=== PATIENT | male | born 2005 | race Caucasian/White ===

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

== ENCOUNTER 2025-02-22 09:11 | Emergency (ER) | payer MEDICAID, SELFPAY ==
[2025-02-22] VITALS (10 sets, daily range): BP systolic 137–146; BP diastolic 107–126; PULSE 100–229; RESP 0–34; TEMP 37.7; O2SAT 93–100; BMI 29.6
--- OUTSIDE RECORDS SUMMARY | 2025-02-22 09:13 | XMS_ITS | Clinical Summary ---
Author Organization [facility] Address [address] [place] [address] Care Team Providers Care Manager Medical Name Role Phone Chari Reed MD Primary Care Provider Allergies No known active allergies Medications buPROPion (WELLBUTRIN XL) 300 mg Extended-Release tabletIndication s:Anxiety and depression Take 1 Tablet (300 mg) by mouth once daily. 90 Tablet 1 05/16/2024 Active omeprazole 20 mg tabletIndication s:Abdominal pain, generalized,Bloa ting Take 1 Tablet (20 mg) by mouth once daily before a meal. 30 Tablet 3 09/04/2024 Active Active Problems Problem Noted Date Diagnosed Date High triglycerides 04/08/2023 ADHD 07/22/2019 Overview (09/29/2022): Assessment at [facility] in 2019 (see scanned report). trials:Concerta Anxiety and depression 07/22/2019 Overview (09/29/2022): Past trials: Celexa. Saw Psychiatrist in the past. Assessment at [facility] in 2019 (see scanned report). Autism spectrum disorder 07/22/2019 Overview (09/29/2022): Assessment at [facility] in 2019 (see scanned report). Resolved Problems Problem Noted Date Diagnosed Date Resolved Date ADHD 07/22/2019 09/29/2022 Overview (09/29/2022): Assessment at [facility] in 2019 (see scanned report). Autism spectrum disorder 07/22/201907/2022 Overview (09/29/2022): Assessment at [facility] in 2020 (see scanned report). ADHD 07/22/2019 09/29/2022 Overview (09/29/2022): Assessment at [facility] in 2020 (see scanned report). trials:Concerta ADHD 09/29/2022 Overview (02/01/2020): Saw Psychiatrist (does not remember name), was on Adderall Depression 09/29/2022 Overview (02/01/2020): Saw Psychiatrist (does not remember name) Immunizations Immunization Administration Dates Next Due COVID-19 VACCINE SPIKEVAX (M ODERNA 50MCG/0.5ML) 12YO+ PFS 04/07/2023 COVID-19 vaccine (My-Apps NTech 30mcg/0.3mL) PF, MDV 01/18/2021,12/28/2020 DTP 11/04/2008 DTaP 04/09/2007 EAzF-KuzR-PKC (Pediarix) 10/27/2006,09/03/2004,1 07/09/2002 DTaP-IPV (Kinrix) 11/04/2008 HIB PRP-D (ProHIBIT) 10/27/2006 HIB PRP-T (ActHIB,Hiberix) 10/27/2006,09/03/2004 ,2003 HPV 9 (Gardasil 9) 04/07/2023,02/01/2020 Hepatitis A (Peds) 04/30/2015,2004 Inactivated Polio Vaccine 11/04/2008,09/2007,10/27/2006,09/03,2003 Influenza, IIV4 04/07/2023 MENINGOCOCCAL VACCINE 2 VIAL 2MO-55YO (MENVEO) 02/01/2020,04/30/2015 MMR 11/04/2008,2008,09/03/2004 Pneumococcal conj 7-Valent (Prevnar 7) 7,09/03/2004,2003 Tdap 04/30/2015 Varicella Vaccine 11/04/2008,2008,10/28/19 07 Family History Medical History Relation Name Comments Good Health Father Heart Disease Maternal Grandfather ADD / ADHD Mother Relation Name Status Comments Father Maternal Grandfather Mother Social History Tobacco Use Types Packs/Day Years Used Date Smoking Tobacco: Some Days Cigarettes Smokeless Tobacco: Never Tobacco Cessation:Ready to Q uit: No; Counseling Given: Yes Alcohol Use Standard Drinks/Week Comments Not Currently 0 (1 standard drink = 0.6 oz pur e alcohol) occ PHQ-2 Answer Date Recorded PHQ-2 TOTAL SCORE 2 11/02/2023 Social Connections Answer Date Recorded Do you often feel lonely or isolated from those around you? 0 09/04/2024 Financial Resource Strain Answer Date R ecorded Difficulty of Paying Living Expenses 1 09/04/2024 Difficulty of Paying Living Expenses 2 09/04/2024 Food Insecurity Answer Date Recorded Do you worry your food will run out before you are able to buy more? 1 09/04/2024 Transportation Needs Answer Date Record ed Does lack of transportation keep you from medica l appointments? 1 09/04/2024 Does lack of transportation keep you from work, meetings or getting things that you need? 2 09/04/2024 Housing Stability Answer Date Recorded What is your housing situation today? 1 09/04/2024 Utilities Answer Date Recorded Do you have trouble paying f or utilities (for example, heat, electricity, water, phone)? 1 09/04/2024 Sex and Gender Information Value Date Recorded Sex Assigned at Male 11/02/2023 3:35 PM CDT Legal Sex Male 7:18 PM CDT Gender Identity Male 11/02/2023 3:35 PM CDT Sexual Orientation Bisexual 11/02/2023 3: 35 PM CDT Obstetrics History Last Filed Vital Signs Vital Sign Reading Time Taken Comments Blood Pressure 146/92 09/04/2024 1:18 PM CDT Pulse 82 09/04/2024 1:18 PM CDT Temperature 37.2 C (99 F) 03/08/2011 3:45 PM CDT Respiratory Rate - - Oxygen Saturation 97% 09/04/2024 1:18 PM CDT Inhaled Oxygen Concentration - - Weight 118.2 kg (260 lb 9.6 oz) 09/04/2024 1:18 PM CDT Height 199 cm (6' 6.35) 04/07/2023 3:30 PM SURVEYOR'S ASSISTANT Body Mass Index - - Plan of Treatment Health Maintenance Due Date Last Done Comments Pneumococcal series for age 6-49 (1 of 2 - PCV) 2022 10/27/2006, 09/03/2004, 2003 HPV series for age 9-45 (3 - Male 3-dose series) 06/30/2023 04/07/2023, 02/01/2020 BMI (ht and wt on same day) for age 18+ 04/07/2024 04/07/2023, 11/02/2021, 09/28/2021 Depression screening for age 12+ 11/01/2024 11/02/2023, 04/08/2023, 04/07/2023, Additional history exists COVID-19 vaccine series ( season) 2025 04/07/2023, 01/18/2021, 12/28/2020 Influenza Vaccine (#1) 2025 04/07/2023 Tetanus booster 04/30/2025 04/30/2015 RSV vaccine for adults or (1 - 1-dose 75+ series) 2078 Hepatitis B series for 19+ Completed 10/27, 09/03/2004, 2003 Meningococcal series for age 11-21 Completed 2019, 04/30/2015 HIV for age 15-65 Completed 04/07/2023 Hepatitis C screening for ag e 18-79 Completed 04/07/2023 Procedures Procedure Name Priority Date/Time Associated Diagnosis Comments ANTI HIV 1/2 Routine 04/07/2023 4:40 PM SURVEYOR'S ASSISTANT Screening for HIV (human immunodeficiency virus) ANTI HCV Routine 04/07/2023 4:40 PM SURVEYOR'S ASSISTANT Need for hepatitis C screening test from Last 3 Months or Most Recently Relevant to Health Maintenance Results * ANTI HCV (04/07/2023 4:40 PM SURVEYOR'S ASSISTANT) HEPATITIS C ANTIBODY Non-Reacti ve Non-React clark 04/07/2023 9:08 PM SURVEYOR'S ASSISTANT [facility] Comment:Please note, per www .CDC.gov: If a patient is known to be at high risk of HCV infection, or is symptomatic, and the physician's suspicion of HCV infection is high, HCV RNA testing is often employed and is of diagnostic value, even after an initial negative anti-HCV test result. Blood BLOOD SPECIMEN / Unknown Venipuncture / Unknown 04/07/2023 4:40 PM SURVEYOR'S ASSISTANT 04/07/2023 4:42 PM SURVEYOR'S ASSISTANT Chari Reed MD SEND OUTS Final Result Performing Organization Address [facility] [address]/[facility] Co de Phone Number [facility] [address] [address], * ANTI HIV 1/2 [05949.0] (04/07/2023 4:40 PM SURVEYOR'S ASSISTANT) HIV-1/HIV-2 SCREEN Non-Reacti ve Non-Reacti ve 04/07/2023 9:10 PM SURVEYOR'S ASSISTANT [facility] Comment:HIV-1 p24 and HIV-1/ HIV-2 Ab Not Detected. Blood BLOOD SPECIMEN / Unknown Venipuncture / Unknown 04/07/2023 4:40 PM SURVEYOR'S ASSISTANT 04/07/2023 4:42 PM SURVEYOR'S ASSISTANT Chari Reed MD SEND OUTS Final Result Performing Organization Address City/[facility] [address]/[facility] Co de Phone Number [facility] [address] [place] [address], from Last 3 Months or Most Recently Relevant to Health Maintenance Insurance [facility] Care Teams Manager Medical Relationship Specialty Start Date End Date Chari Reed MD [address] [facility] [address] [place], [place] [id number] PCP - General Family Practice 04/07/23
--- NOTE | 2025-02-22 09:42 | ED.CHESTPAIN ---
HPI - Chest Pain General Chief Complaint: Chest Pain Stated Complaint: difficulty breathing, chest pain Time Seen by Provider: 02/22/25 09:34 History of Present Illness HPI narrative: Patient is a 19-year-old gentleman with history of autism and anxiety who presents with proximally 12 hours of anxiety palpitations and fever. He really has no other localizing symptoms. He feels like his heart is racing P does have some intermittent chest pain but no diaphoresis no abdominal pain no changes bowel or bladder. Patient has been eating and drinking normally. Patient has had no dysuria no other signs of infection. No recent injuries or trauma. Related Data Home Medications ?Medication ?Instructions ?Recorded ?Confirmed bupropion HCl 150 mg 24 hr tablet, 150 mg PO DAILY 10/25/22 02/22/25 extended release bupropion HCl 300 mg 24 hr tablet, 300 mg PO DAILY 02/22/25 02/22/25 extended release omeprazole 20 mg tablet,delayed 20 mg PO DAILY 02/22/25 02/22/25 release Allergies Allergy/AdvReac Type Severity Reaction Status Date / Time No Known Drug Allergies Allergy Verified 11/17/22 18:53 Review of Systems Status of ROS Reports: 10 or more systems reviewed and unremarkable except as noted in History and below [facility] Medical History Autism ?F84.0 - Autistic disorder (ICD-10) ADHD (attention deficit hyperactivity disorder) ?F90.9 - Attention-deficit hyperactivity disorder, unspecified type (ICD-10) Depression ?F32.A - Depression, unspecified (ICD-10) Anxiety ?F41.9 - Anxiety disorder, unspecified (ICD-10) Poor self-esteem ?R45.81 - Low self-esteem (ICD-10) Surgical History S/P ORIF (open reduction internal fixation) fracture (11/11/22) ?Z98.890 - Other specified postprocedural states (ICD-10) ?Z87.81 - Personal history of (healed) traumatic fracture (ICD-10) Social History Smoking Status: Current every day smoker Do you use any of these nicotine containing products: Vaping Products How often do you have a drink containing alcohol: never AUDIT-C Alcohol total score: 0 Non-prescribed substance use: marijuana (any form) service: No Exam Narrative Exam Narrative: EXAM GENERAL: Patient appears extremely anxious. EYES: No scleral icterus. LYMPH: No supraclavicular or cervical lymphadenopathy. SKIN: Visible skin seen during exam normal or with benign process only. EXT: No dependent lower extremity pedal edema. HEART: Mildly tachycardic with no signs of ectopy. LUNGS: Clear to auscultation bilaterally with no crackles or wheezes. ABD: Soft, non tender, non distended. PSYCH: Good eye contact, speech is not pressured. Const Vital Signs, click to edit/add: Vital Signs - 24 hr 02/22/25 09:24 02/22/25 09:30 02/22/25 09:31 Temperature 99.9 F H Pulse Rate 116 H Pulse Rate [Left Pulse Oximeter] 129 H Respiratory Rate 22 16 Blood Pressure 137/126 H Blood Pressure [Right Upper Arm] 137/126 H Pulse Oximetry 100 95 Oxygen Delivery Method Room Air 02/22/25 09:45 02/22/25 10:00 02/22/25 10:02 Temperature Pulse Rate 100 113 H 126 H Pulse Rate [Left Pulse Oximeter] Respiratory Rate 34 H 18 21 Blood Pressure 146/107 H Blood Pressure [Right Upper Arm] Pulse Oximetry 98 98 96 Oxygen Delivery Method Course Course ED Course: EKG shows normal sinus with a rate 115. I did give him 0.5 mg of Ativan and I collected CBC comprehensive metabolic panel D-dimer troponin. Vital Signs Vital signs: Initial Vital Signs Temperature 99.9 F H 02/22/25 09:24 Temperature Source Temporal Artery Scan 02/22/25 09:24 Pulse Rate 129 H 02/22/25 09:24 Pulse Rhythm Regular 02/22/25 09:24 Pulse Strength 3+ Normal 02/22/25 09:24 Respiratory Rate 22 02/22/25 09:24 Blood Pressure 137/126 H 02/22/25 09:24 Blood Pressure Mean 129 H 02/22/25 09:24 Blood Pressure Position Sitting 02/22/25 09:24 Pulse Oximetry 100 02/22/25 09:24 Oxygen Delivery Method Room Air 02/22/25 09:24 Vital Signs Temperature 99.9 F H 02/22/25 09:24 Pulse Rate 129 H 02/22/25 09:24 Respiratory Rate 22 02/22/25 09:24 Blood Pressure 137/126 H 02/22/25 09:24 Pulse Oximetry 100 02/22/25 09:24 Oxygen Delivery Method Room Air 02/22/25 09:24 Temperature 99.9 F H 02/22/25 09:24 Pulse Rate 126 H 02/22/25 10:02 Respiratory Rate 21 02/22/25 10:02 Blood Pressure 146/107 H 02/22/25 10:02 Pulse Oximetry 96 02/22/25 10:02 Oxygen Delivery Method Room Air 02/22/25 09:24 Medications Administered Medications: Discontinued Medications Generic Name Dose Route Start Last Admin Trade Name Kathleen PRN Reason Stop Dose Admin Lorazepam 0.5 mg 02/22/25 09:41 02/22/25 09:59 Lorazepam 0.5 Mg Tablet PO 02/22/25 09:42 0.5 mg ONCE ONE Administration MDM - Chest Pain MDM Narrative Medical decision making narrative: Patient is a 19-year-old gentleman who presents with chest pain and palpitations. Is been going on for last 12 hours. Patient is autistic and does take be propria in for anxiety. He has a negative troponin negative EKG although does have sinus tachycardia negative D-dimer electrolytes are unremarkable CBC is unremarkable. Patient is extremely anxious I did give him 0.5 mg of Ativan orally. He is improved but is still convinced something is wrong with his heart. This time I did offer reassurance and recommended primary care follow-up and actually offered a follow-up in my clinic. He will return if symptoms worsen otherwise will see him back in clinic. Lab Data Labs: Lab Results 02/22/25 Range/Units 10:00 WBC 10.62 (4.50-11.00) K/uL RBC 5.59 (4.30-5.90) m/uL Hgb 16.3 (13.5-17.5) gm/dL Hct 45.3 (37.0-53.0) % MCV 81 (80-100) fL MCH 29 (26-34) pg MCHC 36 (32-36) gm/dL RDW Coeff of Viviana 12.2 (11.5-15.5) % Plt Count 298 (140-440) K/uL Neut % (Auto) 73.8 H (42.0-72.0) % Lymph % (Auto) 16.9 L (20-44) % [place] % (Auto) 7.8 (0.0-11.0) % Eos % (Auto) 1.0 (0.0-7.0) % Baso % (Auto) 0.3 (0.0-3.0) % Neut # (Auto) 7.80 H (1.7-7.0) K/uL Lymph # (Auto) 1.80 (0.90-2.90) K/uL [place] # (Auto) 0.80 (0.00-0.90) K/UL Eos # (Auto) 0.11 (0.00-0.50) K/uL Baso # (Auto) 0.03 (0.00-0.30) K/uL Abs Immat Gran (auto) 0.02 (0.00-0.30) K/uL Imm/Tot Granulo (auto) 0.2 % D-Dimer Quant (PE/DVT) 0.20 (0.00-0.50) ug/ml Sodium 141 (135-149) mmol/L Potassium 3.9 (3.6-5.1) mmol/L Chloride 103 (96-114) mmol/L Carbon Dioxide 26 (20-32) mmol/L Anion Gap 12 (7-15) mEq/L BUN 15 (5-24) mg/dL Creatinine 0.9 (0.5-1.5) mg/dL Estimated Creat Clear 167.85 Estimated GFR 125 ml/min Glucose 113 (60-115) mg/dL Calcium 10.0 (8.4-10.6) mg/dL Total Bilirubin 1.5 (0.1-1.5) mg/dL AST 30 (12-35) U/L ALT 42 (4-50) U/L Alkaline Phosphatase 77 (40-150) U/L Troponin I < 0.01 (0.01-0.04) ng/mL Total Protein 7.9 (6.0-8.3) g/dL Albumin 5.0 (3.3-5.0) g/dL Discharge Plan Discharge Clinical Impression: Palpitation Patient Disposition: Home, Self-Care Condition: Stable Instructions: Heart Palpitations (ED) Additional Instructions: Follow-up primary care such as Dr. Oconnor in the next several weeks. Continue current medications. Rest Fluids Activity Level: No Restrictions Discharge Diet: Regular Prescriptions: No Action bupropion HCl 150 mg tablet extended release 24 hr 150 mg PO DAILY bupropion HCl 300 mg tablet extended release 24 hr 300 mg PO DAILY omeprazole 20 mg tablet,delayed release (DR/EC) 20 mg PO DAILY Follow Up/Referrals: Pablo Britt MD [Primary Care Provider, Family Practice] Stand Alone Forms: [employer] Info Instructions
[2025-02-22 10:06] LABS: Hematocrit* 45.3 % (37.0-53.0); Hemoglobin* 16.3 gm/dL (13.5-17.5); Immature Granulocytes Abs Auto 0.02 K/uL (0.00-0.30); Immature Granulocytes Pct Auto 0.2 %; Lymphocytes Absolute Auto 1.80 K/uL (0.90-2.90); Mean Corpuscular HGB Conc 36 gm/dL (32-36); Mean Corpuscular Hemoglobin 29 pg (26-34); Mean Corpuscular Volume 81 fL (80-100); RDW Coefficient of Variation % 12.2 % (11.5-15.5); Red Blood Count* 5.59 m/uL (4.30-5.90); White Blood Count* 10.62 K/uL (4.50-11.00)
[2025-02-22 10:09] LABS: Slide Review Reflex No
[2025-02-22 10:19] LABS: Chloride* 103 mmol/L (96-114)
[2025-02-22 10:20] LABS: Albumin* 5.0 g/dL (3.3-5.0); Potassium* 3.9 mmol/L (3.6-5.1); Sodium* 141 mmol/L (135-149)
[2025-02-22 10:22] LABS: Blood Urea Nitrogen* 15 mg/dL (5-24); Creatinine* 0.9 mg/dL (0.5-1.5); Est. Creatinine Clearance* 167.85; Estimated Glomerular Filt Rate 125 ml/min
[2025-02-22 10:23] LABS: Alanine Aminotransferase* 42 U/L (4-50); Alkaline Phosphatase* 77 U/L (40-150); Anion Gap 12 mEq/L (7-15); Aspartate Amino Transferase* 30 U/L (12-35); Bilirubin Total* 1.5 mg/dL (0.1-1.5); Calcium* 10.0 mg/dL (8.4-10.6); Carbon Dioxide* 26 mmol/L (20-32); Glucose* 113 mg/dL (60-115); Total Protein* 7.9 g/dL (6.0-8.3)
[2025-02-22 10:26] LABS: D Dimer Quantitative* 0.20 ug/ml (0.00-0.50)
== END 2025-02-22 11:00 | disposition home or self-care (01) ==
PROVIDERS: Emergency Provider Internal Medicine; PCP Family Medicine
DX: R00.2 Palpitations (principal); F84.0 Autistic disorder; F41.9 Anxiety disorder, unspecified; Z79.899 Other long term (current) drug therapy
CPT/HCPCS: 36415; 80053; 84484; 85025; 85379; 93005; 99283; 99284; A9270

== ENCOUNTER 2025-03-05 15:02 | Outpatient (CLI) | payer MEDICAID, SELFPAY | END 2025-03-05 15:03 | disposition home or self-care (01) | PROVIDERS: PCP Family Medicine; Visit Provider Family Medicine | DX: Z83.49 Family history of other endocrine, nutritional and metabolic diseases (principal) | CPT/HCPCS: 81256; 82728 ==